=== PATIENT | male | born 1960 | race American Indian/Alaskan Native ===

== ENCOUNTER 2017-07-18 17:21 | Inpatient (IN) | payer MEDICAID ==
[2017-07-18 20:11] LABS: BASO % 0.7 % (0.0-2.0); EOS # 0.3 K/uL (0.0-0.7); EOS % 8.2 % (0.0-4.0); HEMATOCRIT 35.3 % (35.0-51.0); LYMPH # 2.2 K/uL (1.0-4.3); LYMPH % 51.3 % (20.0-40.0); MEAN CELL VOLUME 92.6 fL (80.0-94.0); MEAN CORPUSCULAR HEMOGLOBIN 31.4 pg (27.0-31.0); MEAN CORPUSCULAR HGB CONC 33.9 g/dL (33.0-37.0); MEAN PLATELET VOLUME 7.3 fL (7.2-11.7); MONO # 0.3 K/uL (0.0-0.8); MONO % 7.2 % (0.0-10.0); RED CELL DISTRIBUTION WIDTH 13.8 % (11.5-14.5); WHITE BLOOD COUNT 4.2 K/uL (4.8-10.8)
[2017-07-18 20:19] LABS: CHLORIDE 100 mmol/L (98-107)
[2017-07-18 20:20] LABS: POTASSIUM 3.8 mmol/L (3.6-5.2); SODIUM 138 mmol/L (132-148)
[2017-07-18 20:22] LABS: ALB/GLOB RATIO 1.2 (1.0-2.1); ALKALINE PHOSPHATASE 66 U/L (38-126); ALT/SGPT 23 U/L (21-72); AST/SGOT 21 U/L (17-59); BILIRUBIN,TOTAL 0.6 mg/dL (0.2-1.3); BLOOD UREA NITROGEN 15 mg/dL (9-20); CARBON DIOXIDE 26 mmol/L (22-30); GFR AFRICAN-AMERICAN > 60; GLUCOSE,RANDOM 86 mg/dL (75-110); TOTAL PROTEIN 7.1 g/dL (6.3-8.3)
[2017-07-18 20:23] LABS: ALCOHOL SERUM < 10 mg/dl (0-10); CALCIUM 8.3 mg/dl (8.6-10.4)
[2017-07-18 20:30] LABS: RBC URINE < 1 /hpf (0-3); URINE BACTERIA OCC (<OCC); URINE BILIRUBIN NEGATIVE (NEGATIVE); URINE BLOOD NEGATIVE (NEGATIVE); URINE COLOR Yellow (YELLOW); URINE GLUCOSE (UA) NORMAL (Normal); URINE KETONE TRACE mg/dL (NEGATIVE); URINE LEUKOCYTE ESTERASE NEG Leu/uL (Negative); URINE PROTEIN NEGATIVE (NEGATIVE); WBC URINE 1 /hpf (0-5)
--- NOTE | 2017-07-18 21:17 | C.PDOC ---
History Of Present Illness 57 year old male who presents to the ER for opiate detox. Patient has a Hx of opiate and cocaine abuse; denies physical complaints at this time. Time Seen by Provider: 07/18/17 18:50 Chief Complaint (Nursing): Psychiatric Evaluation History Per: Patient History/Exam Limitations: no limitations Onset/Duration Of Symptoms: Days Current Symptoms Are (Timing): Still Present Suicide/Self Injury Attempted (Context): None Modifying Factor(s): Narcotics, Cocaine Associated Symptoms: denies: Depression, Suicidal Thoughts, Suicidal Plan Involuntary Hold By: None Recent travel outside of the [place]: No Past Medical History Reviewed: Historical Data, Nursing Documentation, Vital Signs Vital Signs: Last Vital Signs Temp 98 F 07/18/17 22:17 Pulse 71 07/18/17 22:17 Resp 18 07/18/17 22:17 BP 116/70 07/18/17 22:17 Pulse Ox 98 07/18/17 22:17 - Medical History PMH: No Chronic Diseases Surgical History: No Surg Hx Family History: States: Unknown Family Hx - Social History Hx Alcohol Use: Yes Hx Substance Use: Yes - Immunization History Hx Tetanus Toxoid Vaccination: Yes Hx Influenza Vaccination: No Hx Pneumococcal Vaccination: No Review Of Systems Constitutional: Positive for: Malaise. Negative for: Fever, Chills Gastrointestinal: Negative for: Nausea, Vomiting, Diarrhea Physical Exam - Physical Exam Appears: Non-toxic, No Acute Distress, Other (Malaise, Cooperative) Skin: Normal Color, Warm, Dry Head: Atraumatic, Normacephalic Eye(s): bilateral: EOMI, Other (Pin point pupils) Oral Mucosa: Moist Chest: Symmetrical, No Tenderness Cardiovascular: Rhythm Regular, No Murmur Respiratory: Normal Breath Sounds, No Rales, No Rhonchi, No Wheezing Gastrointestinal/Abdominal: Soft, No Tenderness Neurological/Psych: Oriented x3, Normal Speech, Normal Cognition ED Course And Treatment - Laboratory Results Result Diagrams: 07/18/17 20:06 07/18/17 20:06 Lab Interpretation: Abnormal (+ opiates, benzo, cocaine) O2 Sat by Pulse Oximetry: 98 (Room air) Pulse Ox Interpretation: Normal Progress Note: Blood work and urinalysis ordered. Crisis notified. Reevaluation Time: 21:16 Reassessment Condition: Improved - Physician Consult Information Outcome Of Conversation: 2100: d/w Crisis, ok to Detox Medical Decision Making Medical Decision Making: opiate, cocaine, and benzo abuse Disposition Doctor Will See Patient In The: Hospital Counseled Patient/Family Regarding: Studies Performed, Diagnosis - Disposition Disposition: HOSPITALIZED Disposition Time: 21:16 Condition: GOOD - Clinical Impression Clinical Impression: Opiate abuse, continuous, Cocaine abuse, Benzodiazepine abuse - Scribe Statement The provider has reviewed the documentation as recorded by the Scribashtyn Damian All medical record entries made by the Duaneibashtyn were at my direction and personally dictated by me. I have reviewed the chart and agree that the record accurately reflects my personal performance of the history, physical exam, medical decision making, and the department course for this patient. I have also personally directed, reviewed, and agree with the discharge instructions and disposition.
--- NOTE | 2017-07-18 21:40 | PCM.BM ---
<Zena Munoz - Last Filed: 07/18/17 21:39> Treatment Plan Problems - Problems identified on initial assessmt Potential for opiate withdrawal Date Initiated: 07/18/17 Time Initiated: 21:40 Assessment reference: NA Status: Active Priority: 1 Treatment assets and liabiliti Patient Assests: negotiates basic needs, cognitively intact Patient Liabilities: substance abuse - Milieu Protocol Maintain good personal hygiene: daily Encourage regular showers, daily Remind patient to perform daily oral care, daily Assist patient to perform ADL's Conduct patient checks and document Observation sheet: Q15 minutes Maintain personal safety: every shift Educate patient to report safety concerns to staff, every shift Monitor environment for contraband/sharps Medication safety: Monitor for expected outcome, potential side effects: every shift, Assess barriers to learning: every shift, Assess readiness for medication education: every shift <Pilar De La Cruz - Last Filed: 07/20/17 10:46> - Diagnosis (1) Opioid use disorder, severe, dependence Status: Acute Interventions: 07/20/17 10:46 * Assess 7x/week regarding severity of withdrawal * Educate regarding risks, benefits, side effects and alternatives of medications * Use Motivational Interviewing for abstinence * Use CBT for relapse prevention * Medication management for withdrawal symptoms * Encourage medication assisted treatment * <Agnieszka Bell - Last Filed: 07/22/17 08:28> Family Contact Family involvement: Andrés/SO not involved Family contact: Patient agrees to contact - Goals for Treatment Patient goals for treatment: Complete detox and transition to IOP. Discharge/Continuing Care - Education Needs Education Needs: Patient Medication, Patient Diagnosis/Disease Process, Patient Coping Skills, Patient Anger Management skills, Patient Placement options, Patient Community resources - Discharge Discharge Criteria: No longer exhibiting s/s of withdrawal, Reduction of target symptoms Discharge to:: Home, With Family - Treatment Team Participation Patient/Family/SO Statement: 07/22/17 08:27 "I [facility] go to the [facility]--I've been there before..." Discussed with Family/SO: No Was Patient/Family/SO present at Treatment Team Meeting: Yes
[2017-07-18] MEDS ORDERED: Aluminum Hydroxide/Magnesium Hydroxide Susp (30 mL) PO PRN (23:04)
[2017-07-19] MEDS ORDERED: Buprenorphine Hydrochloride 2 mg SL ONE ×2 (06:08→07:15)
[2017-07-19] MEDS ORDERED: Buprenorphine Hydrochloride 8 mg SL SCH (07:15)
--- NOTE | 2017-07-19 11:51 | PCM.PSYCH ---
Initial Psychiatric Evaluation - Initial Psychiatric Evaluation Type of Admission: Voluntary Legal Status: Capacity Chief Complaint (in patient's own words): "I wasn't feeling too good" History of Present Illness and Precipitating Events: Pt is a 57 year old male with a past medical history of arthritis of the hip who presented to the ED 07/18/17 requesting opioid detox. He is single, has 2 children, and lives with his father in [place], [place]. He collects disability for his arthritis, stating that he needs a hip replacement. He has a 27 year history of using heroin and oxycodone. He reports to shoot 10 bags of heroin daily and takes pills depending on "however many I can get." He has been to 2 detoxes in the past and 2 rehabs, one at [facility] in [place] the other at "this place in [place]." The most recent occurrence was in the ( unspecified). His longest period of sobriety was 3 years during which was not on MAT. He has been prescribed Methadone 70 mg in the past at a clinic in [place]. He also reports a 27 year history of smoking cocaine. He smokes 1/2 pack cigarettes daily. He uses Xanax sporadically though he states that "I get locked up a lot when I'm not that" because it causes him to lose his self- control. He has used marijuana only once (reports to have been given an edible at this birthday alliance party unbeknownst to him). He denies the use of alcohol and other drugs. He denies a past psychiatric history and denies a family history of both psychiatric disorders as well as substance use disorders. He was given medication earlier this morning and reports to feel fairly well since then. He has no complaints at this time. After care discussed. He plans to attend an outpatient program in [place] at [facility]. He is encouraged to consider Vivitrol or Suboxone and expresses interest in the Vivitrol shot. He is likely to be discharged on Saturday07/23/17 at the latest. Current Medications: Active Medications Generic Name Dose Route Start Last Admin Trade Name Freq PRN Reason Stop Dose Admin Al Hydrox/Mg Hydrox/Simethicone 30 ml 07/18/17 23:04 Maalox 30 Ml PO TID PRN Indigestion / Heartburn Clonidine HCl 0.1 mg 07/18/17 23:04 Catapres PO Q8 PRN COWS Score More or Equal to 5 Hydroxyzine HCl 50 mg 07/18/17 22:18 07/18/17 22:41 Atarax PO 50 mg Q8 PRN Administration Anxiety Ibuprofen 600 mg 07/18/17 22:19 07/18/17 22:41 Motrin Tab PO 600 mg Q8 PRN Administration Pain, moderate (4-7) Loperamide HCl 2 mg 07/18/17 23:04 Imodium PO Q8 PRN Diarrhea Ondansetron HCl 4 mg 07/18/17 23:04 Zofran Tab PO Q8 PRN Nausea/Vomiting Trazodone HCl 50 mg 07/18/17 22:18 07/18/17 22:41 Desyrel PO 50 mg HS PRN Administration Insomnia Past Psychiatric History - Past Psychiatric History Previous Treatment History: Inpatient Prior Professional Help: 2 detoxes, 2 rehabs Prior Psychiatric Treatment: Denies History of ETOH/Drug Use: Heroin, oxycodone, cocaine, Xanax, cigarettes History of Family Illness: Denies Pertinent Medical Hx (Current Medical&Sleep Prob, Allergies): Allergies Allergy/AdvReac Type Severity Reaction Status Date / Time No Known Allergies Allergy Verified 07/18/17 17:49 No Known Home Med 07/18/17 Review of Systems - Gastrointestinal Gastrointestinal: absent: Nausea, Vomiting - Neurological Neurological: UNREMARKABLE - Psychiatric Psychiatric: absent: Anxiety, Depression, Irritability, Suicidal Ideation Mental Status Examination - Personal Presentation Personal Presentation: Looks stated age - Affect Affect: Constricted - Motor Activity Motor Activity: Calm - Reliability in Providing Information Reliability in Providing Information: Good - Speech Speech: Organized, Relevant, Coherent - Mood Mood: Neutral - Formal Thought Process Formal Thought Process: No Impairment - Obsessions/Compulsions Obsessions: None Compulsions: None - Cognitive Functions Orientation: Person, Place, Situation, Time Sensorium: Alert Attention/Concentration: Attentive Judgement: Intact, as evidence by: Insight regarding need for hospitalization Memory: Recent intact, as evidence by: Ability to recall events of the day, Remote intact, as evidenced by: Abilit to recall sig. life events - Risk Risk: Withdrawal - Strength & Assets Inventory Strength & Assets Inventory: Family support, Life experience DSM 5 DX - DSM 5 DSM 5 Diagnosis: Opioid use disorder, severe Opioid withdrawal Cocaine use disorder, severe - Recommended/Plan of Treatment Treatment Recommendations and Plan of Treatment: Start Subutex Catapres 0.1 mg PO Q8 PRN Atarax 50 mg PO Q8 PRN Desyrel 50 mg PO HS PRN Attend self-help groups and activities Supportive therapy and psychoeducation [place] for abstinence CBT for relapse prevention Encourage MAT Refer to rehab Projected ELOS: 3-4 days Prognosis: Good with treatment - Smoking Cessation Smoking Cessation Initiated: No
[2017-07-19] MEDS ORDERED: Buprenorphine Hydrochloride 2 mg SL PRN (16:17)
[2017-07-20] MEDS: Buprenorphine Hydrochloride 2 mg SL SCH (10:19)
--- NOTE | 2017-07-20 20:44 | PCM.PYCHPN ---
Psychiatric Progress Note - Psychiatric Progress Note Patient seen today, length of contact: 18 minutes Patient Chief Complaint: I'm doing better Problems Identified/Issues Discussed: The pt is seen, chart reviewed, case discussed with staff. Pt reported improvement in his symptoms, and appetite. He stated that he wants to be sober. Support given, CBT and [place] used briefly No new symptoms reported, improving slowly and needs more time No SEs from medications, risks discussed. After care discussed Diagnostic Results: lab result reviewed DSM 5 Symptoms Update: Opioid use disorder, severe Opioid withdrawal Cocaine use disorder, severe Medication Change: Yes (Subutex taper) Medical Record Reviewed: Yes Mental Status Examination - Cognitive Function Orientation: Person, Place, Situation, Time Memory: Intact Attention: WNL Concentration: WNL Association: WNL Fund of Knowledge: WNL - Mood Mood: Neutral - Affect Affect: Constricted - Speech Speech: Appropriate - Formal Thought Process Formal Thought Process: No Impairment Psychotic Thoughts and Behaviors: Denied - Suicidal Ideation Suicidal Ideation: No - Homicidal Ideation Homicidal Ideation: No Goal/Treatment Plan - Goal/Treatment Plan Need for Continued Stay: Discharge may exacerbated symptoms Progress Toward Problem(s) and Goals/Treatment Plan: Continue medications Support and psychoeducation daily Attend groups and activities daily After care planning by DEEPAK Estimated Date of D/C: 07/22/17 - Smoking Cessation Smoking Cessation Initiated: Yes
[2017-07-21] MEDS: Buprenorphine Hydrochloride 2 mg SL SCH (09:27)
--- NOTE | 2017-07-21 19:37 | PCM.PYCHPN ---
Psychiatric Progress Note - Psychiatric Progress Note Patient seen today, length of contact: 18 minutes Patient Chief Complaint: I'm feeling better Problems Identified/Issues Discussed: The pt is seen, chart reviewed, case discussed with staff. Pt reported improvement in his symptoms, and appetite. He stated that he wants to be sober. Support given, CBT and [place] used briefly No new symptoms reported, improving and needs more time No SEs from medications, risks, benefits and alternative meds discussed. After care discussed Diagnostic Results: lab result reviewed DSM 5 Symptoms Update: Opioid use disorder severe, dependence Opioid withdrawal Medication Change: Yes (Subutex taper) Medical Record Reviewed: Yes Mental Status Examination - Cognitive Function Orientation: Person, Place, Situation, Time Memory: Intact Attention: WNL Concentration: WNL Association: WNL Fund of Knowledge: [facility] Decription of patient's judgement and insights: improving/improving - Mood Mood: Neutral - Affect Affect: Other (full) - Speech Speech: Appropriate - Formal Thought Process Formal Thought Process: No Impairment Psychotic Thoughts and Behaviors: Denied - Suicidal Ideation Suicidal Ideation: No - Homicidal Ideation Homicidal Ideation: No Goal/Treatment Plan - Goal/Treatment Plan Need for Continued Stay: Discharge may exacerbated symptoms Progress Toward Problem(s) and Goals/Treatment Plan: Continue medications Support and psychoeducation daily Attend groups and activities daily After care planning by DEEPAK Estimated Date of D/C: 07/22/17 - Smoking Cessation Smoking Cessation Initiated: Yes
[2017-07-22] MEDS: Buprenorphine Hydrochloride 2 mg SL SCH (10:02)
--- NOTE | 2017-07-22 15:20 | PCM.PYCHPN ---
Psychiatric Progress Note - Psychiatric Progress Note Patient seen today, length of contact: 16 min Patient Chief Complaint: "I feel a lot better" Problems Identified/Issues Discussed: Pt is seen, chart reviewed, case discussed with staff. Pt is compliant with medications and reports no side effects. Pt reports to have had a good night of sleep and an improvement in his appetite. Symptoms are improving but pt needs more time to stabilize. Support and psychoeducation given, CBT and [place] used briefly. After care discussed. He is prepared for discharge tomorrow. He will attend IOP at [facility] in [place], [place] at 2pm. Medication Change: Yes (Detox meds change daily) Medical Record Reviewed: Yes Mental Status Examination - Cognitive Function Orientation: Person, Place, Situation, Time Memory: Intact Attention: WNL Concentration: WNL Association: WNL Fund of Knowledge: WNL - Mood Mood: Neutral - Affect Affect: Broad - Speech Speech: Appropriate - Formal Thought Process Formal Thought Process: No Impairment - Suicidal Ideation Suicidal Ideation: No - Homicidal Ideation Homicidal Ideation: No Goal/Treatment Plan - Goal/Treatment Plan Need for Continued Stay: Discharge may exacerbated symptoms Progress Toward Problem(s) and Goals/Treatment Plan: Subutex detox As needed medications Neurontin for augmentation Attend groups and activities Attend self-help groups as well Supportive therapy and psychoeducation [place] for abstinence CBT for relapse prevention Encourage MAT After care planning Estimated Date of D/C: 07/23/17 (Pt needs more time to stabilize)
[2017-07-22 15:34] VITALS: RESP 18
--- NOTE | 2017-07-23 08:43 | PCM.PYCHDC ---
Mental Status Examination - Mental Status Examination Orientation: Person, Place, Situation, Time Memory: Intact Mood: Neutral Affect: Broad Speech: Appropriate Attention: WNL Concentration: WNL Association: WNL Fund of Knowledge: WNL Formal Thought Process: No Impairment Suicidal Ideation: No Current Homicidal Ideation?: No Discharge Summary - Discharge Note Reason for Hospitalization: Request for opioid detox Psychiatric History (includes Medical, Family, Personal Hx): 2 detoxes, 2 rehabs Consultations:: List each consultation separately and include: 1. Reason for request. 2. Findings. 3. Follow-up Summary of Hospital Course include:: 1. Description of specific treatment plan utilized for patients during their course of treatmen. 2. Summarize the time- course for resolution of acute symptoms and/or regressed behaviors. 3. Describe issues identified and worked on during hospitalization. 4. Describe medication utilized. 5. Describe medical problems identified and treated. 6. Reassessment of suicide risk Summary of Hospital Course: Pt was admitted and started on treatment with psychotherapy, support, psychoeducation and medications. [facility] and CBT used. Pt attended groups and activities as well as milieu therapy. All the risks and benefits of medications were discussed and pt understood and agreed. Pt improved with the treatment provided. He has no complaints at this time and states "I'm ready. I feel good." After care discussed.Pt will return home where he lives with his father and will attend IOP at [facility] starting this afternoon. He also plants to attend and is encouraged to consider Vivitrol therapy. - Final Diagnosis (DSM 5) Condition upon Discharge: GOOD DSM 5: Opioid use disorder, severe Opioid withdrawal Cocaine use disorder, severe Disposition: HOME/ ROUTINE Follow-up Treatment Plan: Continue below medications after discharge. Follow after care as discussed. Use relapse prevention skills. Return to ER or call 911 if suicidal, homicidal or symptoms relapse. Stay away from stress, alcohol and drugs. See primary doctor once a year. Prescriptions/Medication Reconciliation: Gabapentin [Neurontin] 300 mg PO BID #60 cap traZODone [Desyrel] 50 mg PO HS PRN #30 tab PRN Reason: Insomnia - Antipsychotic Medications Pt discharged on 2 or more routine antipsychotic medications: No
[2017-07-23] MEDS: Buprenorphine Hydrochloride 2 mg SL SCH (09:13)
[2017-07-23 09:18] VITALS: BP 118/65; PULSE 66; TEMP 98.2; O2SAT 99
== END 2017-07-23 10:40 | disposition home or self-care (01) | DRG 745 ==
LOC: C.ER 17:21 → C.7D 21:15
PROVIDERS: ADMIT Psychiatry & Neurology Psychiatry; ATTEND Psychiatry & Neurology Psychiatry
PROC: HZ2ZZZZ Detoxification Services for Substance Abuse Treatment (ICD-10-PCS; principal; 2017-07-19)
PROC: HZ52ZZZ Individual Psychotherapy for Substance Abuse Treatment, Cognitive-Behavioral (ICD-10-PCS; 2017-07-19)
PROC: HZ42ZZZ Group Counseling for Substance Abuse Treatment, Cognitive-Behavioral (ICD-10-PCS; 2017-07-19)
PROC: HZ59ZZZ Individual Psychotherapy for Substance Abuse Treatment, Supportive (ICD-10-PCS; 2017-07-19)
PROC: HZ56ZZZ Individual Psychotherapy for Substance Abuse Treatment, Psychoeducation (ICD-10-PCS; 2017-07-19)
PROC: HZ46ZZZ Group Counseling for Substance Abuse Treatment, Psychoeducation (ICD-10-PCS; 2017-07-19)
DX: F11.23 Opioid dependence with withdrawal (principal); F14.20 Cocaine dependence, uncomplicated

== ENCOUNTER 2018-03-05 16:50 | Inpatient (IN) | payer MEDICAID ==
[2018-03-05 17:53] LABS: BASO # 0.1 K/uL (0.0-0.2); EOS # 0.1 K/uL (0.0-0.7); EOS % 1.3 % (0.0-4.0); HEMOGLOBIN 13.4 g/dL (12.0-18.0); LYMPH # 2.1 K/uL (1.0-4.3); LYMPH % 38.9 % (20.0-40.0); MEAN CELL VOLUME 94.3 fL (80.0-94.0); MEAN PLATELET VOLUME 7.7 fL (7.2-11.7); MONO # 0.3 K/uL (0.0-0.8); NEUT # 2.9 K/uL (1.8-7.0); NEUT % 52.8 % (50.0-75.0); RBC 4.2 Mil/uL (4.40-5.90); RED CELL DISTRIBUTION WIDTH 13.2 % (11.5-14.5); WHITE BLOOD COUNT 5.4 K/uL (4.8-10.8)
[2018-03-05 18:02] LABS: ALB/GLOB RATIO 1.1 (1.0-2.1); ALBUMIN 4.3 g/dL (3.5-5.0); ALT/SGPT 14 U/L (21-72); AST/SGOT 18 U/L (17-59); BLOOD UREA NITROGEN 13 mg/dL (9-20); CALCIUM 9.1 mg/dl (8.6-10.4); GFR AFRICAN-AMERICAN > 60; GFR NON-AFRICAN AMERICAN > 60
[2018-03-05 18:10] LABS: BARBITURATES, UR NEGATIVE (NEGATIVE); PHENCYCLIDINE, UR NEGATIVE (NEGATIVE)
[2018-03-05 18:16] LABS: BENZODIAZEPINES, UR POSITIVE (NEGATIVE); OPIATES, UR POSITIVE (NEGATIVE)
[2018-03-05 18:37] LABS: URINE BACTERIA RARE (<OCC); URINE BILIRUBIN NEGATIVE (NEGATIVE); URINE BLOOD NEGATIVE (NEGATIVE); URINE CALCIUM OXALATE CRYSTALS OCC /hpf (<OCC); URINE CLARITY Clear (Clear); URINE COLOR Yellow (YELLOW); URINE GLUCOSE (UA) NORMAL (Normal); URINE LEUKOCYTE ESTERASE NEG Leu/uL (Negative); URINE PROTEIN NEGATIVE (NEGATIVE); URINE UROBILINOGEN NORMAL mg/dL (0.2-1.0)
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
[2018-03-05] MEDS ORDERED: Aluminum Hydroxide/Magnesium Hydroxide Susp (30 mL) PO PRN (19:32)
--- NOTE | 2018-03-06 13:09 | PCM.PSYCH ---
Initial Psychiatric Evaluation - Initial Psychiatric Evaluation Type of Admission: Voluntary Legal Status: Capacity Chief Complaint (in patient's own words): "I need help" History of Present Illness and Precipitating Events: He is seen, chart reviewed and case discussed. He is known from previous admission. Pt is a 57 year old male with a past medical history of arthritis of the hip and BPH who presented to the ED, again, requesting opioid detox. He is single, has 2 children, and lives with his father in [place], [place]. He collects disability for his arthritis, stating that he needs a hip replacement. He has a 27 year history of using heroin and oxycodone. He reports to snort 10 bags of heroin daily and takes pills sometimes. He has been to 3 detoxes in the past and 2 rehabs, one at [facility] in [place], another in [place]. His longest period of sobriety was 3 years during which was not on MAT. He has been prescribed Methadone 70 mg in the past at a clinic in [place]. He also reports a 27 year history of smoking cocaine. He smokes 1/2 pack cigarettes daily. He uses Xanax "once a month" but it causes him to lose his self-control. He denies the use of alcohol and other drugs. He denies a past psychiatric history and denies a family history of both psychiatric disorders as well as substance use disorders. Current Medications: Active Medications Generic Name Dose Route Start Last Admin Trade Name Freq PRN Reason Stop Dose Admin Al Hydrox/Mg Hydrox/Simethicone 30 ml 03/05/18 19:32 Maalox 30 Ml PO TID PRN Indigestion / Heartburn Clonidine HCl 0.1 mg 03/05/18 19:32 Catapres PO Q8 PRN COWS Score More or Equal to 5 Hydroxyzine HCl 25 mg 03/05/18 19:32 Atarax PO Q6 PRN Agitation Loperamide HCl 2 mg 03/05/18 19:32 Imodium PO Q8 PRN Diarrhea Methadone HCl 20 mg 03/06/18 10:00 03/06/18 09:34 Methadone PO 03/11/18 09:59 20 mg Q24H LINSEY Administration Taper Mirtazapine 15 mg 03/06/18 22:00 Remeron PO HS ILNSEY Nicotine 1 patch 03/06/18 11:30 03/06/18 11:27 Nicoderm Cq TD 1 patch DAILY LINSEY Administration Ondansetron HCl 4 mg 03/05/18 19:32 Zofran Tab PO Q8 PRN Nausea/Vomiting Pseudoephedrine HCl 60 mg 03/05/18 19:32 Sudafed Tab PO QID PRN Nasal/Sinus Congestion Trazodone HCl 100 mg 03/06/18 22:00 Desyrel PO HS LINSEY Past Psychiatric History - Past Psychiatric History Previous Treatment History: None Pertinent Medical Hx (Current Medical&Sleep Prob, Allergies): Allergies Allergy/AdvReac Type Severity Reaction Status Date / Time No Known Allergies Allergy Verified 03/05/18 17:02 Gabapentin [Neurontin] 300 mg PO BID #60 cap 07/23/17 traZODone [Desyrel] 50 mg PO HS PRN #30 tab 07/23/17 Review of Systems - Neurological Neurological: UNREMARKABLE - Psychiatric Psychiatric: Abnormal Sleep Pattern, Anxiety, Difficulty Concentrating. absent : Hallucinations, Homicidal Ideation, Paranoia, Suicidal Ideation Mental Status Examination - Personal Presentation Personal Presentation: Looks older than stated age - Affect Affect: Broad - Motor Activity Motor Activity: Calm - Reliability in Providing Information Reliability in Providing Information: Good - Speech Speech: Organized - Mood Mood: Anxious - Formal Thought Process Formal Thought Process: No Impairment - Cognitive Functions Orientation: Person, Place, Situation, Time Sensorium: Alert Attention/Concentration: Attentive Estimate of Intelligence: Average Judgement: Intact, as evidence by: Insight regarding need for hospitalization Memory: Recent intact, as evidence by: Ability to recall events of the day, Remote intact, as evidenced by: Abilit to recall sig. life events - Risk Risk: Diminished functioning - Strength & Assets Inventory Strength & Assets Inventory: Cooperative - Limitations Limitations: Other DSM 5 DX - DSM 5 DSM 5 Diagnosis: Opioid withdrawal Opioid use d/o - severe Cocaine use d/o - severe Sedative, hypnotic use d/o - mild - Recommended/Plan of Treatment Treatment Recommendations and Plan of Treatment: methadone detox As needed medications Gabapentin for augmentation if needed All risks, benefits and alternatives of medications, including no medications, discussed and the patient understood and agreed. Attend groups and activities Supportive therapy and psychoeducation [place] for abstinence CBT for relapse prevention Encourage MAT Refer to rehab or IOP Attend self-help groups as well [place] for smoking cessation and patch if needed 34 min Projected ELOS: 4-5 days Prognosis: good w treatment - Smoking Cessation Smoking Cessation Initiated: Yes
--- NOTE | 2018-03-07 13:40 | PCM.PYCHPN ---
Psychiatric Progress Note - Psychiatric Progress Note Patient seen today, length of contact: 16 min Patient Chief Complaint: "I am not well" Problems Identified/Issues Discussed: The pt is seen, chart reviewed, case discussed with staff. Support given, CBT and [place] used briefly No new symptoms reported, improving slowly and needs more time No SEs from medications, risks discussed. After care discussed Medication Change: Yes (detox changes daily) Medical Record Reviewed: Yes Mental Status Examination - Cognitive Function Orientation: Person, Place, Situation, Time Memory: Intact Attention: WNL Concentration: WNL Association: WNL Fund of Knowledge: WNL - Mood Mood: Anxious - Affect Affect: Broad - Speech Speech: Appropriate - Formal Thought Process Formal Thought Process: No Impairment - Suicidal Ideation Suicidal Ideation: No - Homicidal Ideation Homicidal Ideation: No Goal/Treatment Plan - Goal/Treatment Plan Need for Continued Stay: Discharge may exacerbated symptoms, Severe functional impairment Progress Toward Problem(s) and Goals/Treatment Plan: methadone detox As needed medications Gabapentin for augmentation if needed All risks, benefits and alternatives of medications, including no medications, discussed and the patient understood and agreed. Attend groups and activities Supportive therapy and psychoeducation [place] for abstinence CBT for relapse prevention Encourage MAT Refer to rehab or IOP Attend self-help groups as well [place] for smoking cessation and patch if needed
--- NOTE | 2018-03-08 18:08 | PCM.PYCHPN ---
Psychiatric Progress Note - Psychiatric Progress Note Patient seen today, length of contact: 16 min Patient Chief Complaint: "I still have opioid withdrawal symptoms" Problems Identified/Issues Discussed: The pt is seen, chart reviewed, case discussed with staff. The pt is compliant with medications and reports no side-effects. Pt reported he still had opioid withdrawal symptoms. He needs more time to stabilize. After care discussed, support and psychoeducation given DSM 5 Symptoms Update: Opioid use disorder, severe Opioid withdrawal symptoms. Medication Change: Yes (detox changes daily) Medical Record Reviewed: Yes Mental Status Examination - Cognitive Function Orientation: Person, Place, Situation, Time Memory: Intact Attention: WNL Concentration: WNL Association: WN Fund of Knowledge: [facility] Decription of patient's judgement and insights: fair/fair - Mood Mood: Anxious - Affect Affect: Broad - Speech Speech: Appropriate - Formal Thought Process Formal Thought Process: No Impairment Psychotic Thoughts and Behaviors: denied - Suicidal Ideation Suicidal Ideation: No Plan: denied - Homicidal Ideation Homicidal Ideation: No Plan: denied Goal/Treatment Plan - Goal/Treatment Plan Need for Continued Stay: Discharge may exacerbated symptoms, Severe functional impairment Progress Toward Problem(s) and Goals/Treatment Plan: Methadone detox As needed medications Gabapentin for augmentation if needed All risks, benefits and alternatives of medications, including no medications, discussed and the patient understood and agreed. Attend groups and activities Supportive therapy and psychoeducation [place] for abstinence CBT for relapse prevention Encourage MAT Refer to rehab or IOP Attend self-help groups as well [place] for smoking cessation and patch if needed Estimated Date of D/C: 03/11/18
[2018-03-09] MEDS: Multiple Vitamins Tab PO SCH (09:47)
--- NOTE | 2018-03-09 14:42 | PCM.PYCHPN ---
Psychiatric Progress Note - Psychiatric Progress Note Patient seen today, length of contact: 16 min Patient Chief Complaint: "I'm feeling better" Problems Identified/Issues Discussed: The pt is seen, chart reviewed, case discussed with staff. The pt is compliant with medications and reports no side-effects. Pt reported he still had opioid withdrawal symptoms. He needs more time to stabilize. After care discussed, support and psychoeducation given DSM 5 Symptoms Update: Opioid use disorder, severe, dependence Opioid withdrawal Cocaine use disorder Medication Change: Yes (detox changes daily) Medical Record Reviewed: Yes Mental Status Examination - Cognitive Function Orientation: Person, Place, Situation, Time Memory: Intact Attention: WNL Concentration: WNL Association: WNL Fund of Knowledge: WN Decription of patient's judgement and insights: fair/fair Addtional comments: Calm and cooperative - Mood Mood: Anxious - Affect Affect: Broad - Speech Speech: Appropriate - Formal Thought Process Formal Thought Process: No Impairment Psychotic Thoughts and Behaviors: denied - Suicidal Ideation Suicidal Ideation: No Plan: denied - Homicidal Ideation Homicidal Ideation: No Plan: denied Goal/Treatment Plan - Goal/Treatment Plan Need for Continued Stay: Discharge may exacerbated symptoms, Severe functional impairment Progress Toward Problem(s) and Goals/Treatment Plan: Methadone detox As needed medications Gabapentin for augmentation if needed All risks, benefits and alternatives of medications, including no medications, discussed and the patient understood and agreed. Attend groups and activities Supportive therapy and psychoeducation [place] for abstinence CBT for relapse prevention Encourage MAT Refer to rehab or IOP Attend self-help groups as well [place] for smoking cessation Estimated Date of D/C: 03/11/18 - Smoking Cessation Smoking Cessation Initiated: Yes
[2018-03-10 06:28] VITALS: RESP 18
--- NOTE | 2018-03-10 08:51 | PCM.PYCHDC ---
Mental Status Examination - Mental Status Examination Orientation: Person, Place, Situation, Time Discharge Summary - Discharge Note Consultations:: List each consultation separately and include: 1. Reason for request. 2. Findings. 3. Follow-up Summary of Hospital Course include:: 1. Description of specific treatment plan utilized for patients during their course of treatmen. 2. Summarize the time- course for resolution of acute symptoms and/or regressed behaviors. 3. Describe issues identified and worked on during hospitalization. 4. Describe medication utilized. 5. Describe medical problems identified and treated. 6. Reassessment of suicide risk Summary of Hospital Course: He is seen, chart reviewed and case discussed. He is known from previous admission. Pt is a 57 year old male with a past medical history of arthritis of the hip and BPH who presented to the ED, again, requesting opioid detox. He is single, has 2 children, and lives with his father in [place], [place]. He collects disability for his arthritis, stating that he needs a hip replacement. He has a 27 year history of using heroin and oxycodone. He reports to snort 10 bags of heroin daily and takes pills sometimes. He has been to 3 detoxes in the past and 2 rehabs, one at [facility], another in [place]. His longest period of sobriety was 3 years during which was not on MAT. He has been prescribed Methadone 70 mg in the past at a clinic in [place]. He also reports a 27 year history of smoking cocaine. He smokes 1/2 pack cigarettes daily. He uses Xanax "once a month" but it causes him to lose his self-control. He denies the use of alcohol and other drugs. He denies a past psychiatric history and denies a family history of both psychiatric disorders as well as substance use disorders. He will go to [facility] in [place]. - Diagnosis (1) Cocaine abuse Current Visit: No Status: Acute (2) Opioid use disorder, severe, dependence Current Visit: No Status: Acute - Final Diagnosis (DSM 5) Condition upon Discharge: STABLE Disposition: HOME/ ROUTINE Follow-up Treatment Plan: methadone detox As needed medications Gabapentin for augmentation if needed All risks, benefits and alternatives of medications, including no medications, discussed and the patient understood and agreed. Attend groups and activities Supportive therapy and psychoeducation [place] for abstinence CBT for relapse prevention Encourage MAT Refer to rehab or IOP Attend self-help groups as well [place] for smoking cessation and patch if needed Prescriptions/Medication Reconciliation: Mirtazapine [Remeron] 15 mg PO HS #30 tab Tamsulosin [Flomax] 0.4 mg PO DAILY #30 cap traZODone [Desyrel] 100 mg PO HS #30 tab
[2018-03-10] MEDS: Multiple Vitamins Tab PO SCH (09:09)
[2018-03-10 10:47] VITALS: BP 127/83; PULSE 85; TEMP 97.2; O2SAT 99
== END 2018-03-10 11:14 | disposition home or self-care (01) | DRG 745 ==
LOC: C.ER 16:50 → C.7D 19:00
PROVIDERS: ADMIT Psychiatry & Neurology Psychiatry; ATTEND Psychiatry & Neurology Psychiatry
PROC: HZ91ZZZ Pharmacotherapy for Substance Abuse Treatment, Methadone Maintenance (ICD-10-PCS; principal; 2018-03-05)
PROC: HZ2ZZZZ Detoxification Services for Substance Abuse Treatment (ICD-10-PCS; 2018-03-05)
PROC: HZ52ZZZ Individual Psychotherapy for Substance Abuse Treatment, Cognitive-Behavioral (ICD-10-PCS; 2018-03-05)
PROC: HZ59ZZZ Individual Psychotherapy for Substance Abuse Treatment, Supportive (ICD-10-PCS; 2018-03-05)
PROC: HZ56ZZZ Individual Psychotherapy for Substance Abuse Treatment, Psychoeducation (ICD-10-PCS; 2018-03-05)
DX: F11.23 Opioid dependence with withdrawal (principal); F14.10 Cocaine abuse, uncomplicated; F17.210 Nicotine dependence, cigarettes, uncomplicated; M16.12 Unilateral primary osteoarthritis, left hip; N40.0 Benign prostatic hyperplasia without lower urinary tract symptoms

== ENCOUNTER 2018-12-12 15:30 | Inpatient (IN) | payer MEDICAID ==
--- NOTE | 2018-12-12 16:23 | C.PDOC ---
History Of Present Illness 58 year old male patient presents to the emergency room requesting detox for heroin. Patient last use was today at 12 pm intra-nasally. Patient also uses cocaine and last use was yesterday. Patient has no other complaints or associat ed symptoms Time Seen by Provider: 12/12/18 16:12 Chief Complaint (Nursing): Substance Abuse History Per: Patient History/Exam Limitations: no limitations Onset/Duration Of Symptoms: Days Current Symptoms Are (Timing): Still Present Modifying Factor(s): Cocaine, Other (heroin) Past Medical History Reviewed: Historical Data, Nursing Documentation, Vital Signs Vital Signs: Last Vital Signs Temp 98.4 F 12/12/18 15:54 Pulse 93 H 12/12/18 15:54 Resp 18 12/12/18 15:54 BP 106/70 12/12/18 15:54 Pulse Ox 95 12/12/18 15:54 - Medical History PMH: Arthritis (L hip) - [facility] Procedures DETOXIFICATION SERVICES FOR SUBSTANCE ABUSE TREATMENT (03/05/18) GROUP MENTAL HEALTH TECH FOR SUBSTANCE ABUSE TREATMENT, PSYCHOEDUCATION (07/18/17) GROUP MENTAL HEALTH TECH FOR SUBSTANCE ABUSE, COGNITIVE BEHAVIORAL (07/18/17) INDIV PSYCHOTHERAPY FOR SUBSTANCE ABUSE TREATMENT, SUPPORT (03/05/18) INDIV PSYCHOTHERAPY FOR SUBSTANCE ABUSE, COGNITIV BEHAVIORAL (03/05/18) INDIV PSYCHOTHERAPY FOR SUBSTANCE ABUSE, PSYCHOEDUCATION (03/05/18) PHARMACOTHERAPY FOR SUBSTANCE ABUSE, METHADONE MAINT (03/05/18) Family History: States: No Known Family Hx - Social History Hx Alcohol Use: No Hx Substance Use: Yes - Immunization History Hx Tetanus Toxoid Vaccination: Yes Hx Influenza Vaccination: No Hx Pneumococcal Vaccination: No Review Of Systems Constitutional: Negative for: Fever, Chills Cardiovascular: Negative for: Chest Pain Respiratory: Negative for: Cough, Shortness of Breath Gastrointestinal: Negative for: Nausea, Vomiting Genitourinary: Negative for: Dysuria, Frequency Physical Exam - Physical Exam Appears: Non-toxic, No Acute Distress Skin: Warm, Dry Head: Normacephalic Eye(s): bilateral: Normal Inspection Nose: Normal Oral Mucosa: Moist Throat: Normal Neck: Normal ROM, Supple Chest: Symmetrical Cardiovascular: Rhythm Regular Respiratory: Normal Breath Sounds Gastrointestinal/Abdominal: Soft, No Tenderness Back: No CVA Tenderness Extremity: Normal ROM (x4) Neurological/Psych: Oriented x3, Normal Speech ED Course And Treatment - Laboratory Results Result Diagrams: 12/12/18 16:45 12/12/18 16:45 Lab Interpretation: Normal O2 Sat by Pulse Oximetry: 95 (RA) Pulse Ox Interpretation: Normal Medical Decision Making Medical Decision Making: Plan: -- chem labs -- blood work -- crisis consult Labs ordered and reviewed. In my clinical judgment patient is medically cleared and stable for psychiatric admission. side door worker contacted for evaluation. As per CW patient is to be admitted under Dr Salmeron service Disposition - Disposition Disposition: HOSPITALIZED Disposition Time: 18:06 Condition: STABLE - POA Present On Arrival: None - Clinical Impression Clinical Impression: Opioid use disorder, severe, dependence - PA / [employer] SPECIALIST / Resident Statement / has reviewed & agrees with the documentation as recorded. - Scribe Statement The provider has reviewed the documentation as recorded by the Duaneibashtyn Cedillo Do All medical record entries made by the Scribe were at my direction and personally dictated by me. I have reviewed the chart and agree that the record accurately reflects my personal performance of the history, physical exam, medical decision making, and the department course for this patient. I have also personally directed, reviewed, and agree with the discharge instructions and disposition. Decision To Admit - Pt Status Changed To: Hospital Disposition Of: Inpatient - Admit Certification Admit to Inpatient:: After my assessment, the patient will require hospitalization for at least two midnights. This is because of the severity of symptoms shown, intensity of services needed, and/or the medical risk in this patient being treated as an outpatient. - InPatient: Physician Admission Certification: I certify that this patient requires 2 or more midnights of care for the following reason:: Patient for inpatient detox from heroin - . Bed Request Type: Detox Admitting Physician: Nurys Salmeron Patient Diagnosis: Opioid use disorder, severe, dependence
[2018-12-12 16:53] LABS: BASO % 0.9 % (0.0-2.0); EOS # 0.1 K/uL (0.0-0.7); EOS % 2.6 % (0.0-4.0); HEMOGLOBIN 12.9 g/dL (12.0-18.0); LYMPH # 1.5 K/uL (1.0-4.3); LYMPH % 31.3 % (20.0-40.0); MEAN CELL VOLUME 94.8 fL (80.0-94.0); MEAN CORPUSCULAR HEMOGLOBIN 31.4 pg (27.0-31.0); MEAN CORPUSCULAR HGB CONC 33.1 g/dL (33.0-37.0); MEAN PLATELET VOLUME 7.6 fL (7.2-11.7); MONO # 0.3 K/uL (0.0-0.8); MONO % 7.1 % (0.0-10.0); NEUT # 2.8 K/uL (1.8-7.0); NEUT % 58.1 % (50.0-75.0); RBC 4.13 Mil/uL (4.40-5.90); RED CELL DISTRIBUTION WIDTH 12.7 % (11.5-14.5); WHITE BLOOD COUNT 4.8 K/uL (4.8-10.8)
[2018-12-12 16:55] LABS: URINE BILIRUBIN NEGATIVE (NEGATIVE); URINE BLOOD NEGATIVE (NEGATIVE); URINE CLARITY Clear (Clear); URINE COLOR Yellow (YELLOW); URINE GLUCOSE (UA) NORMAL (Normal); URINE LEUKOCYTE ESTERASE NEG Leu/uL (Negative); URINE PROTEIN NEGATIVE (NEGATIVE)
[2018-12-12 17:04] LABS: ALB/GLOB RATIO 1.2 (1.0-2.1); ALBUMIN 4.5 g/dL (3.5-5.0); ALT/SGPT 16 U/L (21-72); AST/SGOT 27 U/L (17-59); BLOOD UREA NITROGEN 19 mg/dL (9-20); GFR NON-AFRICAN AMERICAN > 60
[2018-12-12 17:08] LABS: BARBITURATES, UR NEGATIVE (NEGATIVE); BENZODIAZEPINES, UR NEGATIVE (NEGATIVE); PHENCYCLIDINE, UR NEGATIVE (NEGATIVE)
[2018-12-12 17:12] LABS: OPIATES, UR POSITIVE (NEGATIVE)
--- NOTE | 2018-12-12 19:24 | PCM.BM ---
<Flaquito Acosta - Last Filed: 12/12/18 19:22> Treatment Plan Problems - Problems identified on initial assessmt denial Date Initiated: 12/12/18 Time Initiated: 19:22 Assessment reference: NA Status: Active defensive coping Date Initiated: 12/12/18 Time Initiated: 19:23 Assessment reference: NA Status: Active hopelessness Date Initiated: 12/12/18 Time Initiated: 19:24 Assessment reference: NA Status: Active chronic low self esteem Date Initiated: 12/12/18 Time Initiated: 19:24 Assessment reference: NA Status: Active Treatment assets and liabiliti Patient Assests: ADL independent, negotiates basic needs, cognitively intact Patient Liabilities: substance abuse, medical problems - Milieu Protocol Maintain good personal hygiene: daily Encourage regular showers, daily Remind patient to perform daily oral care, daily Assist patient to perform ADL's Conduct patient checks and document Observation sheet: Q15 minutes Maintain personal safety: every shift Educate patient to report safety concerns to staff, every shift Monitor environment for contraband/sharps Medication safety: Monitor for expected outcome, potential side effects: every shift, Assess barriers to learning: every shift, Assess readiness for medication education: every shift <Pilar De La Cruz - Last Filed: 12/16/18 00:23> - Diagnosis (1) Opioid use disorder, severe, dependence Status: Acute Interventions: 12/16/18 00:23 * Assess 7x/week regarding severity of withdrawal * Educate regarding risks, benefits, side effects and alternatives of medications * Use Motivational Interviewing for abstinence * Use CBT for relapse prevention * Medication management for withdrawal symptoms * Encourage medication assisted treatment *
[2018-12-12] MEDS ORDERED: Magnesium Hydroxide Susp 30 ml UD PO PRN (19:26)
[2018-12-12] MEDS ORDERED: Aluminum Hydroxide/Magnesium Hydroxide Susp (30 mL) PO PRN (19:26)
--- NOTE | 2018-12-15 09:57 | PCM.PYCHPN ---
Psychiatric Progress Note - Psychiatric Progress Note Patient seen today, length of contact: 17 min Patient Chief Complaint: "Withdrawing" Problems Identified/Issues Discussed: The pt is seen, chart reviewed, case is discussed with staff. The pt is compliant with medications and reports no side-effects. Symptoms are improving but needs more time to stabilize and to avoid relapse. Pt attends groups and activities. Support given, psycho-education provided. After care discussed. Medication Change: Yes (detox changes daily) Medical Record Reviewed: Yes Mental Status Examination - Cognitive Function Orientation: Person, Place, Situation, Time Memory: Intact Attention: WNL Concentration: Poor Association: WNL Fund of Knowledge: WNL - Mood Mood: Depressed - Affect Affect: Constricted - Speech Speech: Appropriate - Formal Thought Process Formal Thought Process: No Impairment - Suicidal Ideation Suicidal Ideation: No - Homicidal Ideation Homicidal Ideation: No Goal/Treatment Plan - Goal/Treatment Plan Need for Continued Stay: Discharge may exacerbated symptoms, Severe functional impairment Progress Toward Problem(s) and Goals/Treatment Plan: Continue detox meds Gabapentin for augmentation if needed As needed medications All risks, benefits and alternatives of the meds discussed, and the pt agreed and understood. Attend groups and activities Supportive therapy and psychoeducation [place] for abstinence CBT for relapse prevention Encourage MAT Refer to rehab or IOP, and self-help groups Teach healthy lifestyle methods, i.e. diet, exercise, meditation Smoking cessation with [place] Nicotine patch if needed Estimated Date of D/C: 12/16/18
[2018-12-16 05:51] VITALS: O2SAT 97
--- NOTE | 2018-12-16 09:11 | PCM.PYCHDC ---
Mental Status Examination - Mental Status Examination Orientation: Person Discharge Summary - Discharge Note Consultations:: List each consultation separately and include: 1. Reason for request. 2. Findings. 3. Follow-up Summary of Hospital Course include:: 1. Description of specific treatment plan utilized for patients during their course of treatmen. 2. Summarize the time- course for resolution of acute symptoms and/or regressed behaviors. 3. Describe issues identified and worked on during hospitalization. 4. Describe medication utilized. 5. Describe medical problems identified and treated. 6. Reassessment of suicide risk Summary of Hospital Course: He will go to [facility] in [facility] - Diagnosis (1) Opioid use disorder, severe, dependence Current Visit: Yes Status: Acute - Final Diagnosis (DSM 5) Condition upon Discharge: STABLE Disposition: HOME/ ROUTINE Follow-up Treatment Plan: Continue detox meds Gabapentin for augmentation if needed As needed medications All risks, benefits and alternatives of the meds discussed, and the pt agreed and understood. Attend groups and activities Supportive therapy and psychoeducation [place] for abstinence CBT for relapse prevention Encourage MAT Refer to rehab or IOP, and self-help groups Teach healthy lifestyle methods, i.e. diet, exercise, meditation Smoking cessation with [place] Nicotine patch if needed Prescriptions/Medication Reconciliation: Gabapentin [Neurontin] 400 mg PO TID #90 cap hydrOXYzine HCl [Atarax] 50 mg PO DAILY PRN #30 tab PRN Reason: Anxiety Mirtazapine [Remeron] 15 mg PO HS #30 tab QUEtiapine [SEROquel] 50 mg PO HS #30 tab Tamsulosin [Flomax] 0.4 mg PO HS #30 cap
[2018-12-16 09:49] VITALS: BP 105/77; PULSE 104; RESP 18; TEMP 98.2
== END 2018-12-16 09:56 | disposition home or self-care (01) | DRG 745 ==
LOC: C.ER 15:30 → C.7D 18:03
PROVIDERS: ADMIT Psychiatry & Neurology Psychiatry; ATTEND Psychiatry & Neurology Psychiatry
PROC: HZ2ZZZZ Detoxification Services for Substance Abuse Treatment (ICD-10-PCS; principal; 2018-12-12)
PROC: HZ59ZZZ Individual Psychotherapy for Substance Abuse Treatment, Supportive (ICD-10-PCS; 2018-12-12)
PROC: HZ46ZZZ Group Counseling for Substance Abuse Treatment, Psychoeducation (ICD-10-PCS; 2018-12-12)
DX: F11.23 Opioid dependence with withdrawal (principal); F14.90 Cocaine use, unspecified, uncomplicated; F17.210 Nicotine dependence, cigarettes, uncomplicated; M16.12 Unilateral primary osteoarthritis, left hip